=== PATIENT | male | born 1940 | race Caucasian/White ===

== ENCOUNTER 2020-07-06 22:33 | Inpatient (IN) ==
[2020-07-06] MEDS ORDERED: *HR* Midazolam HCl 2 MG/2 ML VIAL ONE (22:40)
[2020-07-06] MEDS ORDERED: *HR* FentaNYL (PF) 100 MCG/2 ML VIAL ONE (22:40)
[2020-07-06] MEDS ORDERED: *HR* Ticagrelor 90 MG TABLET PO ONE (22:42)
[2020-07-06] MEDS ORDERED: Perflutren Lipid Microsphere 1.3 ML in 0.9 % Sodium Chloride 8.7 ML IVP PRN (22:50)
[2020-07-06] MEDS ORDERED: 0.9 % Sodium Chloride 1,000 ML ONE (22:58)
[2020-07-06] MEDS ORDERED: *HR* Heparin 10,000 UNIT/10 ML VIAL ONE (22:58)
[2020-07-06] MEDS ORDERED: Tirofiban 12.5 MG/250ML 12.5 MG/250 ML BAG ONE (22:58)
[2020-07-06] MEDS ORDERED: ISOVUE-370 200 ML INFUS..BTL ONE (22:58)
[2020-07-06] MEDS ORDERED: Heparin 1,000 UNITS/500 mL 500 ML ONE (22:58)
[2020-07-06] MEDS ORDERED: Nitroglycerin 1,000 MCG/10 ML VIAL IV ONE (22:59)
[2020-07-06] MEDS ORDERED: Tirofiban 12.5 MG/250ML 12.5 MG/250 ML BAG IVC SCH (23:00)
[2020-07-06 23:01] LABS: Basophils # 0.1 K/mcL (0.0-0.2); Basophils % 0.5 %; Eosinophils # 0.8 K/mcL (0.0-0.6); Eosinophils % 4.9 %; Hematocrit 40.8 % (37.5-50.1); Hemoglobin 13.1 g/dL (12.9-16.9); Immature Granulocytes % 0.4 % (0-4); Lymphocytes % 41.2 %; Mean Corpuscular HGB Conc 32.1 g/dL (31.6-35.5); Mean Corpuscular Volume 96.7 fL (83.0-100.0); Mean Platelet Volume 10.4 fL (9.4-12.4); Monocytes # 1.3 K/mcL (0.0-1.3); Monocytes % 7.5 %; Neutrophils # 7.7 K/mcL (1.6-8.9); Platelet Count 195 K/mcL (140-400); Red Blood Count 4.22 M/mcL (4.19-5.50); Red Cell Distribution Width 13.9 % (11.5-14.5); Segmented Neutrophils % 45.5 %; White Blood Count 16.9 K/mcL (4.3-11.1)
[2020-07-06] MEDS ORDERED: *HR* Nitroprusside 50 MG VIAL IVC ONE (23:08)
[2020-07-06] MEDS ORDERED: 0.9 % Sodium Chloride 500 ML ONE (23:08)
[2020-07-06] MEDS ORDERED: *HR* Atropine Sulfate 1 MG/10 ML SYRINGE ONE (23:13)
[2020-07-06 23:18] LABS: Prothrombin Time 11.3 Seconds (9.4-12.1)
[2020-07-06 23:20] LABS: Activated Partial Thrombo Time 26.2 Seconds (26.0-36.0)
[2020-07-06 23:22] LABS: BUN/Creatinine Ratio 15 (6-26); Blood Urea Nitrogen 18 mg/dL (8-23); Calcium 8.7 mg/dL (8.6-10.3); Carbon Dioxide 27 mEq/L (23-29); Chloride 106 mEq/L (98-107); Glucose 159 mg/dL (70-105); Osmolality,Calculated 293 (280-300); Potassium 3.7 mEq/L (3.5-5.1); Sodium 139 mEq/L (136-145); eGFR For African Americans > 60 (> 60); eGFR For Non-African Americans 58 (> 60)
[2020-07-06 23:25] LABS: Troponin I 0.03 ng/mL (< 0.04)
[2020-07-07 07:25] LABS: Basophils % 0.3 %; Eosinophils # 0.1 K/mcL (0.0-0.6); Eosinophils % 0.6 %; Hemoglobin 13.1 g/dL (12.9-16.9); Immature Granulocytes % 0.3 % (0-4); Lymphocytes # 3.2 K/mcL (0.6-4.6); Lymphocytes % 21.5 %; Mean Corpuscular HGB Conc 32.8 g/dL (31.6-35.5); Mean Corpuscular Hemoglobin 30.5 pg (28.0-33.3); Mean Platelet Volume 10.5 fL (9.4-12.4); Monocytes % 6.7 %; Neutrophils # 10.4 K/mcL (1.6-8.9); Platelet Count 204 K/mcL (140-400); Red Cell Distribution Width 13.8 % (11.5-14.5); Segmented Neutrophils % 70.6 %; White Blood Count 14.7 K/mcL (4.3-11.1)
[2020-07-07 07:46] LABS: BUN/Creatinine Ratio 15 (6-26); Blood Urea Nitrogen 15 mg/dL (8-23); Calcium 8.7 mg/dL (8.6-10.3); Carbon Dioxide 23 mEq/L (23-29); Chloride 106 mEq/L (98-107); Glucose 139 mg/dL (70-105); Osmolality,Calculated 287 (280-300); Potassium 3.9 mEq/L (3.5-5.1); Sodium 137 mEq/L (136-145); eGFR For African Americans > 60 (> 60); eGFR For Non-African Americans > 60 (> 60)
[2020-07-07] MEDS: *HR* Ticagrelor 90 MG TABLET PO SCH ×2 (09:42→19:24)
[2020-07-07] MEDS: Aspirin Enteric Coated 81 MG Tablet PO SCH (12:15)
[2020-07-08] MEDS: *HR* Ticagrelor 90 MG TABLET PO SCH ×2 (07:59→21:51)
[2020-07-08] MEDS: Aspirin Enteric Coated 81 MG Tablet PO SCH (07:59)
[2020-07-08] MEDS ORDERED: Nitroglycerin 0.4 MG TAB.SUBL SL PRN (15:53)
[2020-07-08] MEDS ORDERED: diazePAM 5 MG TABLET PO SCH (21:00)
[2020-07-09] MEDS: *HR* Ticagrelor 90 MG TABLET PO SCH (08:02)
[2020-07-09] MEDS ORDERED: Multivit/Ca/Min/Fe/FA 1 TAB TABLET PO SCH (09:00)
[2020-07-09] MEDS ORDERED: Aspirin Enteric Coated 81 MG Tablet PO SCH (09:00)
[2020-07-09] MEDS ORDERED: Loratadine 10 MG TABLET PO SCH (09:00)
[2020-07-09 11:14] VITALS: BP 110/82
== END 2020-07-09 12:38 | disposition home or self-care (01) | DRG 250 ==
LOC: EMEROOARM 22:33 → ICNU 22:47 → 2NNU 07-08 15:47
PROVIDERS: ADMIT Internal Medicine Cardiovascular Disease; ATTEND Internal Medicine Cardiovascular Disease